=== PATIENT | male | born 1995 | race African-American/Black ===

== ENCOUNTER 2016-06-06 15:25 | Emergency (ER) | payer OTHER ==
[2016-06-06 16:38] VITALS: BP 117/53
[2016-06-06] MEDS ORDERED: Dexamethasone TAB* 4 MG PO ONE (18:05)
[2016-06-06] MEDS ORDERED: Ibuprofen ADULT LIQ* 600 MG/30 ML UDC PO ONE (18:10)
--- NOTE | 2016-06-06 18:23 | UC ---
Throat Pain/Nasal Eric HPI - HPI Summary HPI Summary: THREE DAYS OF GRADUALLY WORSENING SORE THROAT, HAS BEEN EXPOSED TO FRIEND WITH MONO. NO RASHES. NO SHORTNESS OF BREATH. NO ABDOMINAL PAIN. - History of Current Complaint Chief Complaint: UCRespiratory Stated Complaint: SORE THROAT Time Seen by Provider: 06/06/16 17:14 Hx Obtained From: Patient, Family/Household Personal Assistant Onset/Duration: Gradual Onset, Lasting Days, Still Present Severity: Moderate Cough: Nonproductive Associated Signs & Symptoms: Positive: Dysphagia, Hoarseness, Fever. Negative: Drooling, Wheezing, Sinus Discomfort, Nasal Discharge, Vomiting, Rash - Epiglottits Risk Factors Epiglottis Risk Factors: Negative - GRADUAL ONSET; NO POSITIONAL CHANGE - Allergies/Home Medications Allergies/Adverse Reactions: Allergies Allergy/AdvReac Type Severity Reaction Status Date / Time No Known Allergies Allergy Verified 06/06/16 16:38 Home Medications: Home Medications NK [No Home Medications Reported] 06/06/16 [History Confirmed 06/06/16] PMH/Surg Hx/FS Hx/Imm Hx Previously Healthy: Yes - Surgical History Surgical History: None - Family History Known Family History: Negative: Respiratory Disease - Social History Occupation: Student Lives: With Family Alcohol Use: Occasionally Substance Use Type: Marijuana, Other Substance Use Comment - Amount & Last Used: unknown Smoking Status (MU): Light Every Day Tobacco Smoker Type: Cigars Review of Systems Constitutional: Negative Skin: Negative Eyes: Negative ENT: Sore Throat Respiratory: Negative Cardiovascular: Negative Gastrointestinal: Negative Genitourinary: Negative Motor: Negative Neurovascular: Negative Musculoskeletal: Negative Neurological: Negative Psychological: Negative All Other Systems Reviewed And Are Negative: Yes Physical Exam Triage Information Reviewed: Yes Appearance: Well-Appearing, No Pain Distress, Well-Nourished, Thin Vital Signs: Initial Vital Signs Temp 100.3 F 06/06/16 16:32 Pulse 80 06/06/16 16:32 Resp 18 06/06/16 16:32 BP 117/53 06/06/16 16:32 Pulse Ox 100 06/06/16 16:32 Vital Signs Reviewed: Yes Eye Exam: Normal Eyes: Positive: Conjunctiva Clear ENT: Positive: Hearing grossly normal, Pharyngeal erythema, Tonsillar swelling Dental Exam: Normal Neck: Positive: Supple, Tenderness @ - BILAT ANTERIOR CERVIAL LNS, Enlarged Nodes @ - BILAT ANTERIOR CERVIAL LNS. Negative: Nuchal Rigidity Respiratory Exam: Normal Respiratory: Positive: Chest non-tender, Lungs clear, Normal breath sounds, No respiratory distress, No accessory muscle use Cardiovascular Exam: Normal Cardiovascular: Positive: RRR, No Murmur, Pulses Normal Abdominal Exam: Normal Abdomen Description: Positive: Nontender, No Organomegaly Musculoskeletal Exam: Normal Musculoskeletal: Positive: Strength Intact, ROM Intact Neurological Exam: Normal Neurological: Positive: Alert, Muscle Tone Normal Psychological Exam: Normal Psychological: Positive: Normal Response To Family Skin Exam: Normal Throat Pain/Nasal Course/Dx - Differential Dx/Diagnosis Differential Diagnosis/HQI/PQRI: Mononucleosis, Otitis Media, Pharyngitis, Sinusitis, URI Provider Diagnoses: TONSILLITIS. (MONONUCLEOSIS) Discharge - Discharge Plan Condition: Stable Disposition: HOME Patient Education Materials: Mononucleosis (ED), Tonsillitis (ED) Forms: *Work Release Referrals: Jovan Terry MD [Primary Care Provider] -
[2016-06-07 11:02] LABS: EBV Response YES
[2016-06-07 11:19] LABS: Hematocrit 45 % (42-52); Hemoglobin 15.2 g/dl (14.0-18.0); Mean Corpuscular HGB Conc 34 g/dl (31-36); Mean Corpuscular Hemoglobin 30 pg (27-31); Mean Corpuscular Volume 89 fL (80-94); Mean Platelet Volume 9 um3 (7.4-10.4); Mono Internal Control QC Line Present; Red Blood Count 5.08 10^6/ul (4.0-5.4); Red Cell Distribution Width 14 % (10.5-15); White Blood Count 12.1 10^3/ul (3.5-10.8)
[2016-06-07 11:20] LABS: Manual Entry Verification GRE0060
[2016-06-07 11:21] LABS: Comments Flag Yes
[2016-06-07 11:22] LABS: Add Diff/Slide Review? Slide Review Added
== END 2016-06-06 18:36 | disposition home or self-care (01) ==
LOC: UCEAST 15:25
DX: J03.90 Acute tonsillitis, unspecified (principal); B27.90 Infectious mononucleosis, unspecified without complication; F17.210 Nicotine dependence, cigarettes, uncomplicated
CPT/HCPCS: 36415; 85025; 86308; 87651; 99211; A9270-GY; G0463; J8540

== ENCOUNTER 2017-07-11 22:54 | Emergency (ER) | payer OTHER ==
[2017-07-11 23:35] LABS: ABS Basophils 0 10^3/ul (0-0.2); ABS Eosinophils 0.1 10^3/ul (0-0.6); ABS Lymphocytes 3.1 10^3/ul (1.0-4.8); ABS Monocytes 0.4 10^3/ul (0-0.8); ABS Neutrophils 5.8 10^3/ul (1.5-7.7); ABS Nucleated RBC 0 10^3/ul; Eosinophil % 1.3 % (0-6); Hematocrit 47 % (42-52); Hemoglobin 15.7 g/dl (14.0-18.0); Lymphocyte % 32.9 % (25-47); Mean Corpuscular HGB Conc 34 g/dl (31-36); Mean Corpuscular Hemoglobin 31 pg (27-31); Mean Corpuscular Volume 91 fL (80-94); Mean Platelet Volume 7 um3 (7.4-10.4); Nucleated Red Blood Cells % 0.1; Platelet Count 254 10^3/ul (150-450); Red Blood Count 5.13 10^6/ul (4.0-5.4); Red Cell Distribution Width 14 % (10.5-15); White Blood Count 9.4 10^3/ul (3.5-10.8)
[2017-07-11 23:49] LABS: EGFR Non-African American 94.3 (>60)
--- NOTE | 2017-07-12 05:57 | ED ---
Artur Schultz Sixian, scribed for Philippe Goncalves on 07/11/17 at 2338 . Substance Abuse/Use - HPI Summary HPI Summary: HPI is limited because pt is asleep. This patient is a 21 year old M BIBA to ED with a chief complaint of alcohol abuse since 2208 today. The pt was brought in by EMS and the police. - History Of Current Complaint Chief Complaint: EDSubstanceAbuse Stated Complaint: 2208 Time Seen by Provider: 07/11/17 22:59 Hx From Patient Unobtainable Due To: Other - LEVEL 5. Pt is asleep. - Allergies/Home Medications Allergies/Adverse Reactions: Allergies Allergy/AdvReac Type Severity Reaction Status Date / Time No Known Allergies Allergy Verified 06/06/16 16:38 PMH/Surg Hx/FS Hx/Imm Hx Infectious Disease History: Unable to Obtain/Confirm Infectious Disease History: Denies: Traveled Outside the [place] in Last 30 Days - Family History Known Family History: Negative: Respiratory Disease - Social History Alcohol Use: Occasionally Substance Use Type: Reports: Marijuana, Other Substance Use Comment - Amount & Last Used: unknown Smoking Status (MU): Light Every Day Tobacco Smoker Type: Cigars Review of Systems - ROS Summary Review of Systems Summary: HPI is limited because pt is asleep. All Other Systems Reviewed And Are Negative: No Physical Exam - Summary Physical Exam Summary: PE is limited because pt is asleep. Appearance: Well appearing, no pain distress, lethargic Skin: warm, dry, reflects adequate perfusion Head/face: normal Eyes: EOMI, CLARKE ENT: normal Neck: supple, non-tender Respiratory: CTA, breath sounds present Cardiovascular: RRR, pulses symmetrical Abdomen: non-tender, soft Bowel: present Musculoskeletal: normal, strength/ROM intact Neuro: normal, sensory motor intact, A&Ox3 Triage Information Reviewed: Yes Vital Signs On Initial Exam: Initial Vitals BP 118/53 07/11/17 23:06 Vital Signs Reviewed: Yes Completion Of Physical Exam Limited Due To: Level 5 Diagnostics - Vital Signs Vital Signs Temp Pulse Resp BP Pulse Ox 07/11/17 23:08 73 100 07/11/17 23:07 98.6 F 76 15 118/53 100 07/11/17 23:06 118/53 - Laboratory Result Diagrams: 07/11/17 23:22 07/11/17 23:22 Lab Statement: Any lab studies that have been ordered have been reviewed, and results considered in the medical decision making process. Course/Dx - Course Assessment/Plan: This patient is a 21 year old M BIBA to ED with a chief complaint of alcohol abuse since 2208 today. The pt was brought in by EMS and the police. Bloodwork was obtained. The patient is diagnosed with alcohol intoxication. The patient is instructed to follow up with primary care. - Diagnoses Provider Diagnoses: Alcohol intoxication Discharge - Discharge Plan Condition: Stable Disposition: HOME Patient Education Materials: Alcohol Intoxication (ED) Referrals: Jovan Terry MD [Primary Care Provider] - 3 Days Additional Instructions: RETURN TO THE EMERGENCY DEPARTMENT FOR CHANGING OR WORSENING SYMPTOMS. The documentation as recorded by the Artur vines Sixian accurately reflects the service I personally performed and the decisions made by , Philippe Goncalves.
[2017-07-12 06:31] VITALS: BP 112/39
== END 2017-07-12 06:18 | disposition home or self-care (01) ==
LOC: ED 22:54
DX: F10.10 Alcohol abuse, uncomplicated (principal)
CPT/HCPCS: 36415; 80053; 80320; 80329; 85025; 99284; G0480

== ENCOUNTER 2019-08-10 13:19 | Emergency (ER) | payer OTHER ==
[2019-08-10 13:38] VITALS: BP 136/74
--- NOTE | 2019-08-10 13:44 | UC ---
UC General HPI - HPI Summary HPI Summary: The patient is a 23-year-old male who got drunk last week. He missed work due to a hangover. He told his boss he was out of work due to an illness. The patient denies any illness here. He has had no cough or runny nose shortness of breath fever or chills. He denies any contact with any covid 19 positive patient's. Review of his history has revealed multiple visits to our ER within intoxication. He states he drinks episodically and heavily. - History of Current Complaint Chief Complaint: UCGeneralIllness Stated Complaint: NEEDS WORK NOTE Time Seen by Provider: 08/10/19 13:32 Hx Obtained From: Patient Onset/Duration: Other - [place] last week Current Severity: Moderate Pain Intensity: 0 - Allergy/Home Medications Allergies/Adverse Reactions: Allergies Allergy/AdvReac Type Severity Reaction Status Date / Time No Known Allergies Allergy Verified 08/10/19 13:38 Home Medications: Home Medications NK [No Home Medications Reported] 06/06/16 [History Confirmed 08/10/19] PMH/Surg Hx/FS Hx/Imm Hx Previously Healthy: Yes - Surgical History Surgical History: None - Family History Known Family History: Positive: Hypertension Negative: Respiratory Disease - Social History Alcohol Use: Occasionally Substance Use Type: Marijuana, Other Substance Use Comment - Amount & Last Used: unknown Smoking Status (MU): Light Every Day Tobacco Smoker Type: Cigars Review of Systems All Other Systems Reviewed And Are Negative: Yes Constitutional: Positive: Negative Skin: Positive: Negative Eyes: Positive: Negative ENT: Positive: Negative Respiratory: Positive: Negative Cardiovascular: Positive: Negative Gastrointestinal: Positive: Negative Genitourinary: Positive: Negative Motor: Positive: Negative Neurovascular: Positive: Negative Musculoskeletal: Positive: Negative Neurological/Mental Status: Positive: Negative Psychological: Positive: Negative Physical Exam Triage Information Reviewed: Yes Appearance: Well-Appearing, No Pain Distress, Well-Nourished Vital Signs: Initial Vital Signs Temp 98.1 F 08/10/19 13:36 Pulse 84 08/10/19 13:36 Resp 15 08/10/19 13:36 BP 136/74 08/10/19 13:36 Pulse Ox 100 08/10/19 13:36 Vital Signs Reviewed: Yes Eyes: Positive: Conjunctiva Clear ENT: Positive: Hearing grossly normal. Negative: Nasal congestion, Nasal drainage, Trismus, Muffled voice, Hoarse voice Dental Exam: Normal Neck: Positive: Supple, Nontender, No Lymphadenopathy Respiratory: Positive: Lungs clear, Normal breath sounds, No respiratory distress, No accessory muscle use Cardiovascular: Positive: RRR, No Murmur Musculoskeletal: Positive: ROM Intact, No Edema Neurological: Positive: Alert Psychological Exam: Normal Skin Exam: Normal Course/Dx - Diagnoses Provider Diagnosis: Normal ear, Alcohol use disorder Discharge ED - Sign-Out/Discharge Documenting (check all that apply): Patient Departure All imaging exams completed and their final reports reviewed: No Studies - Discharge Plan Condition: Stable Disposition: HOME Patient Education Materials: Alcohol Use Disorder (ED) Forms: *Work Release Referrals: Jovan Terry MD [Primary Care Provider] - 1 Week - Billing Disposition and Condition Condition: STABLE Disposition: Home
== END 2019-08-10 13:54 | disposition home or self-care (01) ==
LOC: UCEAST 13:19
DX: Z00.00 Encounter for general adult medical examination without abnormal findings (principal); Z72.89 Other problems related to lifestyle
CPT/HCPCS: 99211; G0463